=== PATIENT | female | born 1955 | race Caucasian/White ===

== ENCOUNTER 2019-01-08 08:24 | Day surgery (SDC) | payer OTHER, MEDICAID ==
[~2019-01-08] VITALS: Ht 167.6 cm; Wt 110.2 kg
[~2019-01-08 08:24] MED LIST: LEVOFLOXACIN 500 MG/D5W 100 ML IV ONE
[2019-01-08] MEDS ORDERED: ONDANSETRON HCL 4 MG/2 ML VIAL IVP PRN (09:30)
[2019-01-08] MEDS ORDERED: fentaNYL CITRATE/PF 100 MCG/2 ML AMP IVP PRN ×2 (09:30)
[2019-01-08] MEDS ORDERED: LR 1,000 ML IV.SOLN IV ONE (12:30)
[2019-01-08] MEDS ORDERED: BACITRACIN ZINC 15 GM TOPICAL OINTMENT TP ONE (12:30)
[2019-01-08] MEDS ORDERED: WATER FOR IRRIGATION,STERILE 1,000 ML IRRIG.SOLN IR ONE (12:30)
[2019-01-08] MEDS ORDERED: OXYMETAZOLINE HCL 0.05% NASAL SPRAY NS ONE (12:30)
[2019-01-08] MEDS ORDERED: fentaNYL CITRATE 250 MCG/5 ML AMP IV ONE (12:30)
[2019-01-08] MEDS ORDERED: SEVOFLURANE 15 MIN GAS INH ONE (12:30)
[2019-01-08] MEDS ORDERED: EPINEPHrine JECT 1 MG/10 ML SYR IVP ONE (12:30)
[2019-01-08] MEDS ORDERED: PROPOFOL 200MG/ 20ML VIAL (DIPRIVAN) IV ONE (12:30)
[2019-01-08] MEDS ORDERED: DEXAMETHASONE SOD PHOSPHATE 4 MG/ML VIAL IVP ONE (12:30)
[2019-01-08] MEDS ORDERED: MUPIROCIN 2% TOPICAL OINTMENT 22 GM TP ONE (12:30)
[2019-01-08] MEDS ORDERED: ONDANSETRON HCL 4 MG/2 ML VIAL IVP ONE (12:30)
[2019-01-08] MEDS ORDERED: LEVOFLOXACIN 500 MG/D5W 100 ML PIGGYBACK IV ONE (12:30)
[2019-01-08] MEDS ORDERED: MIDAZOLAM HCL 5 MG/5 ML VIAL IVP ONE (12:30)
[2019-01-08] MEDS ORDERED: GLYCOPYRROLATE 0.2 MG/ML VIAL IJ ONE (12:30)
[2019-01-08] MEDS ORDERED: ROCURONIUM BROMIDE 10 MG/ML (ZEMURON) IV ONE (12:30)
[2019-01-08] MEDS ORDERED: fentaNYL CITRATE/PF 100 MCG/2 ML AMP ONE (16:29)
[2019-01-08 17:53] VITALS: BP_SYST 136
== END 2019-01-08 18:00 | disposition home or self-care (01) ==
LOC: SDS 08:24 → SMU 08:25 → SDS 18:00
PROVIDERS: ATTEND Otolaryngology
DX: J32.9 Chronic sinusitis, unspecified (principal); J32.4 Chronic pansinusitis; J32.0 Chronic maxillary sinusitis; J34.2 Deviated nasal septum; E66.01 Morbid (severe) obesity due to excess calories; J44.9 Chronic obstructive pulmonary disease, unspecified; M19.90 Unspecified osteoarthritis, unspecified site; G62.9 Polyneuropathy, unspecified; Z88.8 Allergy status to other drugs, medicaments and biological substances; Z79.899 Other long term (current) drug therapy; K21.9 Gastro-esophageal reflux disease without esophagitis; E78.00 Pure hypercholesterolemia, unspecified; E03.9 Hypothyroidism, unspecified; M05.9 Rheumatoid arthritis with rheumatoid factor, unspecified
CPT/HCPCS: 30140; 30520; 31255; 31256; 31295; 31298; 42831; 87070 ×2; 87075; 87101; 87186; 88304; 88305; 88311; C1726; J0171; J1100; J1956; J2250; J2405; J2704; J3010 ×2; J3490; J7120